=== PATIENT | male | born 1965 | race African-American/Black ===

== ENCOUNTER → 2018-04-24 | Outpatient (CLI) | payer OTHER ==
--- NOTE | 2018-04-24 15:58 | Diagnostic Imaging Report ---
EXAMINATION: CHEST 2 VIEWS INDICATION: Nonproductive cough for one week COMPARISON: None FINDINGS: PA and lateral views TUBES and LINES: None. LUNGS: The diaphragms are mildly flattened. No interstitial thickening or mass. There is no evidence of pneumonia or pulmonary edema. PLEURA: No pleural effusion or pneumothorax. HEART AND MEDIASTINUM: The cardiomediastinal silhouette is unremarkable.. BONES AND SOFT TISSUES: Mild degenerative changes of the spine. No focal osseous lesions. Soft tissues are unremarkable. UPPER ABDOMEN: No free air under the diaphragm. IMPRESSION: Mild flattening of the diaphragms suggestive of air trapping. Please correlate with history of small airways disease. Signed by: Dr. Haylee Hall MD on 04/24/2018 3:55 PM
== END ==
LOC: RAD 15:15
PROVIDERS: ATTEND Family Medicine
DX: J06.9 Acute upper respiratory infection, unspecified (principal)
CPT/HCPCS: 71046